=== PATIENT | male | born 2000 | race Caucasian/White ===

== ENCOUNTER 2018-11-24 12:25 | Emergency (ER) | payer SELFPAY ==
[~2018-11-24] VITALS: Ht 188 cm; Wt 74.5 kg
[2018-11-24 12:30] VITALS: BP 123/75
[2018-11-24 14:37] VITALS: PULSE 85; TEMP 99.4
== END 2018-11-24 14:38 | disposition home or self-care (01) ==
LOC: COL.ER 12:25
DX: J10.1 Influenza due to other identified influenza virus with other respiratory manifestations (principal); F17.210 Nicotine dependence, cigarettes, uncomplicated